=== PATIENT | female | born 1950 | race Caucasian/White ===

== ENCOUNTER 2022-12-01 21:09 | Emergency (ER) | payer MEDICARE, BC ==
[~2022-12-01] VITALS: Ht 157.5 cm; Wt 49.1 kg
[2022-12-01 21:20] VITALS: BP 147/72
[2022-12-01] MEDS ORDERED: TETanus/Pertussis (Acell)/Diphther VAC/PF (Tdap-Adult) 0.5ml syringe IMVAC ONE (22:40)
== END 2022-12-01 22:51 | disposition home or self-care (01) ==
LOC: ER 21:09
DX: S91.331A Puncture wound without foreign body, right foot, initial encounter (principal); X58.XXXA Exposure to other specified factors, initial encounter; Y93.89 Activity, other specified; Y92.89 Other specified places as the place of occurrence of the external cause; Y99.8 Other external cause status
CPT/HCPCS: 73630; 90471; 90715; 99283